=== PATIENT | female | born 1950 | race Caucasian/White ===

== ENCOUNTER 2016-10-14 08:22 | Day surgery (SDC) | payer MEDICARE, BC ==
[2016-10-14] MEDS ORDERED: Midazolam 1 MG/ML 2 ML SDV ONE (09:01)
[2016-10-14] MEDS ORDERED: Propofol 200 MG/20 ML SDV ONE ×2 (09:01→09:47)
[2016-10-14] MEDS ORDERED: fentaNYL 100 MCG/2 ML SDV ONE (09:01)
[2016-10-14] MEDS ORDERED: Lactated Ringers 1,000 ML IV SCH (09:15)
[2016-10-14 11:04] VITALS: BP 138/69
--- NOTE | 2016-10-15 11:13 | OR ---
DATE OF PROCEDURE: 10/14/2016 PREOPERATIVE DIAGNOSIS: Colon cancer screening. POSTOPERATIVE DIAGNOSIS: Unremarkable colonoscopy. PROCEDURE PERFORMED: Colonoscopy to the cecum. ANESTHESIA: IV anesthesia with monitored anesthesia care. INDICATIONS: This 65-year-old white female is referred for a colonoscopy for colon cancer screening. She says her last colonoscopic exam was done in [place] ten years ago. I counseled her for the procedure including risks and alternatives, and she gave her informed consent to proceed. DESCRIPTION OF PROCEDURE: The patient was placed in the left lateral decubitus position. IV anesthesia was administered by the Anesthesia Service. Time-out was held. A rectal exam was performed, which was unremarkable. The flexible video Olympus colonoscope was introduced through her anus, up her rectum, and out her colon all way to the cecum. To accomplish this, we did apply some abdominal compression. Once the cecum was reached, the scope was slowly withdrawn examining the mucosa throughout. No mucosal abnormalities were noted. No neoplastic lesions were seen. No diverticula were seen. The scope was retroflexed in the rectum with the distal rectum appearing unremarkable. The scope was straightened and removed. She tolerated the procedure well. Gregor Alicea MD /[id number] BINA
== END 2016-10-14 11:20 | disposition home or self-care (01) ==
LOC: JP.SDS 08:22
PROVIDERS: ATTEND Surgery
DX: Z12.11 Encounter for screening for malignant neoplasm of colon (principal)
CPT/HCPCS: G0121; J2250; J2704; J3010; J7120

== ENCOUNTER 2017-08-09 19:52 | Emergency (ER) | payer MEDICARE, BC ==
[2017-08-09 20:27] VITALS: BP 157/76
--- NOTE | 2017-08-09 20:31 | EDM.PDOC ---
ED HPI GENERAL MEDICAL PROBLEM - General Chief Complaint: Abdominal Pain Stated Complaint: STOMACH PAIN Time Seen by Provider: 08/09/17 20:29 Source of Information: Reports: Patient, Family History Limitations: Reports: No Limitations - History of Present Illness INITIAL COMMENTS - FREE TEXT/NARRATIVE: pt arrived with a distended abdoman. She is uncomfortble in the lowr abdoman.She has not had a bm since wednesday. Onset: Gradual, Other ( the discomfort is worse today. ) Duration: Hour(s):, Other (pt did drink a half bottle of mag citrate today. ) Location: Reports: Abdomen Associated Symptoms: Reports: Loss of Appetite Lower Abdominal Pain Score (Numeric/FACES): 8 - Related Data Allergies Allergy/AdvReac Type Severity Reaction Status Date / Time No Known Allergies Allergy Verified 10/14/16 08:55 Home Meds: Home Meds Magnesium Citrate [Citrate of Magnesia] 296 ml PO ASDIRECTED PRN 08/09/17 [ History] Ondansetron [Zofran ODT] 4 mg PO ASDIRECTED PRN 08/09/17 [History] Prochlorperazine Maleate 08/09/17 [History] Prochlorperazine [Compazine] 5 mg PO ASDIRECTED PRN 08/09/17 [History] Sennosides/Docusate Sodium [Senna-S] 2 tab PO BID 08/09/17 [History] oxyCODONE 5 mg PO ASDIRECTED PRN 08/09/17 [History] Past Medical History - Past Health History Medical/Surgical History: Denies Medical/Surgical History HEENT History: Reports: 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: Oncologic (Cancer) History: Reports: Basal Cell Carcinoma, Liver, Pancreatic - Infectious Disease History Infectious Disease History: Reports: Chicken Pox - Past Surgical History HEENT Surgical History: Reports: Tonsillectomy GI Surgical History: Reports: Appendectomy Social & Family History - Tobacco Use Smoking Status *Q: Never Smoker Second Hand Smoke Exposure: No - Caffeine Use Caffeine Use: Reports: Coffee - Alcohol Use Days Per Week of Alcohol Use: 3 Number of Drinks Per Day: 1 Total Drinks Per Week: 3 - Recreational Drug Use Recreational Drug Use: No ED ROS GENERAL - Review of Systems Review Of Systems: See Below Constitutional: Reports: No Symptoms HEENT: Reports: No Symptoms Respiratory: Reports: No Symptoms Cardiovascular: Reports: No Symptoms Endocrine: Reports: No Symptoms GI/Abdominal: Reports: Abdominal Pain, Constipation, Distension, Nausea : Reports: No Symptoms Musculoskeletal: Reports: No Symptoms Skin: Reports: No Symptoms Neurological: Reports: No Symptoms ED EXAM, GI/ABD - Physical Exam Exam: See Below Text/Narrative:: pt arrived with a history of no bm mariza wednesday. She feels distended in the lower abdoman. She is not passing gas. Exam Limited By: No Limitations General Appearance: Alert, Anxious, Moderate Distress Ears: Normal TMs Nose: Normal Inspection Throat/Mouth: Normal Inspection Head: Atraumatic Neck: Normal Inspection Respiratory/Chest: No Respiratory Distress Cardiovascular: Regular Rate, Rhythm, Tachycardia GI/Abdominal Exam: Distended, Tender (Female) Exam: Deferred Rectal (Female) Exam: Deferred Back Exam: Normal Inspection Extremities: Normal Inspection Neurological: Alert, Oriented, Normal Cognition Psychiatric: Normal Affect Course - Vital Signs Last Recorded V/S: Last Vital Signs Temp 35.7 C 08/09/17 20:09 Pulse 85 08/09/17 20:09 Resp 16 08/09/17 20:09 BP 157/76 H 08/09/17 20:09 Pulse Ox 97 08/09/17 20:09 - Orders/Labs/Meds Labs: Laboratory Tests 08/09/17 08/09/17 08/09/17 Range/Units 20:40 20:40 21:08 WBC 14.6 H (4.5-11.0) K/uL RBC 4.19 (3.30-5.50) M/uL Hgb 12.8 (12.0-15.0) g/dL Hct 38.0 (36.0-48.0) % MCV 91 (80-98) fL MCH 31 (27-31) pg MCHC 34 (32-36) % Plt Count 269 (150-400) K/uL Neut % (Auto) 88 H (36-66) % Lymph % (Auto) 7 L (24-44) % [place] % (Auto) 4 (2-6) % Eos % (Auto) 0 L (2-4) % Baso % (Auto) 0 (0-1) % Sodium 131 L (140-148) mmol/L Potassium 4.1 (3.6-5.2) mmol/L Chloride 93 L (100-108) mmol/L Carbon Dioxide 28 (21-32) mmol/L Anion Gap 14.1 H (5.0-14.0) mmol/L BUN 13 (7-18) mg/dL Creatinine 0.6 (0.6-1.0) mg/dL Est Cr Clr Drug Dosing 86.75 mL/min Estimated GFR (MDRD) > 60 (>60) Glucose 160 H (74-106) mg/dL Calcium 9.1 (8.5-10.1) mg/dL Total Bilirubin 1.2 H (0.2-1.0) mg/dL AST 50 H (15-37) U/L ALT 90 H (12-78) U/L Alkaline Phosphatase 246 H (46-116) U/L Total Protein 6.7 (6.4-8.2) g/dL Albumin 3.3 L (3.4-5.0) g/dL Globulin 3.4 (2.3-3.5) g/dL Albumin/Globulin Ratio 1.0 L (1.2-2.2) Urine Color Yellow Urine Appearance Clear Urine pH 5.0 (4.5-8.0) Ur Specific [place] 1.025 (1.008-1.030) Urine Protein Negative (NEGATIVE) mg/dL Urine Glucose (UA) Normal (NEGATIVE) mg/dL Urine Ketones 50 H (NEGATIVE) mg/dL Urine Occult Blood Moderate (NEGATIVE) Urine Nitrite Negative (NEGATIVE) Urine Bilirubin Negative (NEGATIVE) Urine Urobilinogen 4 (NORMAL) mg/dL Ur Leukocyte Esterase Negative (NEGATIVE) Urine RBC 5-10 H (0-5) Urine WBC 0-5 (0-5) Ur Epithelial Cells Few Amorphous Sediment Not seen Urine Bacteria Few Urine Mucus Rare Meds: Medications Discontinued Medications Generic Name Dose Route Start Last Admin Trade Name Freq PRN Reason Stop Dose Admin Hydromorphone HCl 0.5 mg 08/09/17 23:52 08/10/17 00:04 Dilaudid IVPUSH 08/09/17 23:53 0.5 mg ONETIME ONE Administration Sodium Chloride 70 mls @ 3 mls/sec 08/09/17 21:55 08/09/17 22:07 Normal Saline IV 08/09/17 21:56 3 mls/sec ASDIRECTED STA Administration Sodium Chloride 1,000 mls @ 400 mls/hr 08/09/17 23:45 08/09/17 23:58 Normal Saline IV 400 mls/hr ASDIRECTED THUY Administration Iopamidol 90 ml 08/09/17 21:55 08/09/17 22:07 Isovue-300 (61%) IV 08/09/17 21:56 100 ml . DIRECTED STA Administration Ondansetron HCl 4 mg 08/09/17 23:52 08/10/17 00:01 Zofran IVPUSH 08/09/17 23:53 4 mg ONETIME ONE Administration - Re-Assessments/Exams Free Text/Narrative Re-Assessment/Exam: 08/10/17 00:01 pt had a cat scan which shows a colonic obstruction, She has known Ca of the pancreas. Pt has chosen to go back to [facility]. She had a liver biopsy done by the interventional radiologist and she had her first round of chemo at [facility]. Departure - Departure Time of Disposition: 00:03 Disposition: DC/Tfer to Acute Hospital 02 Condition: Fair Clinical Impression: Colonic obstruction, Cancer of pancreas, History of recent chemotherapy - Discharge Information Referrals: Gem Kim NP [Primary Care Provider] - Forms: ED Department Discharge Care Plan Goals: transfer to [facility].
[2017-08-09] MEDS ORDERED: Iopamidol 612 MG/ML 100 ML Bottle IV STA (21:55)
[2017-08-09] MEDS ORDERED: Sodium Chloride 0.9% 1,000 ML IV SCH (23:45)
[2017-08-09] MEDS ORDERED: Ondansetron 4 MG/2 ML SDV IVPUSH ONE (23:52)
[2017-08-09] MEDS ORDERED: HYDROmorphone 0.5 MG/0.5 ML Syringe IVPUSH ONE (23:52)
--- NOTE | 2017-08-10 09:30 | CR ---
Heart size within normal limits. Pulmonary vasculature within normal limits. No focal consolidation. Dilated central loop of bowel which may be colonic indicating colonic obstruction.
== END 2017-08-10 00:44 ==
LOC: JP.ED 19:52
DX: K56.609 Unspecified intestinal obstruction, unspecified as to partial versus complete obstruction (principal); C25.9 Malignant neoplasm of pancreas, unspecified
CPT/HCPCS: 36415; 43752; 51798; 74022; 74177; 80053; 81001; 85025; 96361; 96374; 96375; 99285; J1170; J2405; J7030; J7040; Q9967; 99284

== ENCOUNTER 2018-03-02 19:33 | Emergency (ER) | payer MEDICARE, BC ==
[2018-03-02 20:15] VITALS: BP 123/57
--- NOTE | 2018-03-02 21:06 | EDM.PDOC ---
ED HPI GENERAL MEDICAL PROBLEM - General Chief Complaint: Fever Stated Complaint: FEVER/CANCER PATIENT Time Seen by Provider: 03/02/18 20:05 Source of Information: Reports: Patient, Family History Limitations: Reports: No Limitations - History of Present Illness INITIAL COMMENTS - FREE TEXT/NARRATIVE: 67-year-old female with metastatic pancreatic cancer received a new dual course of chemotherapy 2 days ago. Today she developed a low-grade fever at home, called the oncologist and he had her come in to get checked out. She had some mild chills but those are resolved, her fever is now essentially resolved as well with a temperature of 99.3. She has no cold symptoms, shortness of breath, cough, abdominal symptoms, rashes, or other specific symptoms. She has some generalized aching and malaise typical of her chemotherapy that she has had in the past. Onset: Unknown/Unsure Severity: Mild Context: Reports: Other (Recent dual chemotherapy) Associated Symptoms: Reports: Malaise. 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) Other Treatments PROOF LOAD MECHANIC: none Back Pain Score (Numeric/FACES): 4 - Related Data Allergies Allergy/AdvReac Type Severity Reaction Status Date / Time No Known Allergies Allergy Verified 03/02/18 20:15 Home Meds: Home Meds Ondansetron [Zofran ODT] 4 mg PO ASDIRECTED PRN 08/09/17 [History] Prochlorperazine [Compazine] 5 mg PO ASDIRECTED PRN 08/09/17 [History] Sennosides/Docusate Sodium [Senna-S] 2 tab PO BID 08/09/17 [History] oxyCODONE 5 mg PO ASDIRECTED PRN 08/09/17 [History] Past Medical History - Past Health History Medical/Surgical History: Denies Medical/Surgical History HEENT History: Reports: 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: Oncologic (Cancer) History: Reports: Basal Cell Carcinoma, Liver, Pancreatic - Infectious Disease History Infectious Disease History: Reports: Chicken Pox - Past Surgical History HEENT Surgical History: Reports: Tonsillectomy GI Surgical History: Reports: Appendectomy, Other (See Below) Other GI Surgeries/Procedures: Colostomy middle of abdomen Social & Family History - Tobacco Use Smoking Status *Q: Never Smoker Second Hand Smoke Exposure: No - Caffeine Use Caffeine Use: Reports: Coffee - Recreational Drug Use Recreational Drug Use: No ED ROS GENERAL - Review of Systems Review Of Systems: See Below Constitutional: Reports: Fever, Chills, Malaise. Denies: Weakness HEENT: Denies: Ear Pain, Throat Pain Respiratory: Denies: Shortness of Breath, Cough Cardiovascular: Denies: Chest Pain GI/Abdominal: Reports: Other (Has a colostomy which is functioning normally). Denies: Abdominal Pain, Nausea, Vomiting : Reports: No Symptoms Musculoskeletal: Reports: Muscle Pain (Generalized muscle aches from chemotherapy) Skin: Reports: No Symptoms Neurological: Denies: Headache Psychiatric: Reports: No Symptoms ED EXAM, GENERAL - Physical Exam Exam: See Below Exam Limited By: No Limitations General Appearance: Alert, No Apparent Distress Eye Exam: Bilateral Eye: Normal Inspection Head: Atraumatic Neck: No: Lymphadenopathy (R), Lymphadenopathy (L) Respiratory/Chest: No Respiratory Distress, Lungs Clear Cardiovascular: Regular Rate, Rhythm GI/Abdominal: Soft, Other (Colostomy in place) Neurological: Alert, Oriented Psychiatric: Normal Affect, Normal Mood Skin Exam: Warm, Dry Course - Vital Signs Last Recorded V/S: Last Vital Signs Temp 99.3 F 03/02/18 20:23 Pulse 113 H 03/02/18 20:23 Resp 14 03/02/18 20:23 BP 123/57 L 03/02/18 20:10 Pulse Ox 99 03/02/18 20:23 - Orders/Labs/Meds Labs: Laboratory Tests 03/02/18 Range/Units 20:45 WBC 11.4 H (4.5-11.0) K/uL RBC 3.16 L (3.30-5.50) M/uL Hgb 10.3 L D (12.0-15.0) g/dL Hct 31.6 L (36.0-48.0) % MCV 100 H (80-98) fL MCH 33 H (27-31) pg MCHC 33 (32-36) % Plt Count 80 L (150-400) K/uL Neut % (Auto) 95 H (36-66) % Lymph % (Auto) 4 L (24-44) % [place] % (Auto) 1 L (2-6) % Eos % (Auto) 0 L (2-4) % Baso % (Auto) 0 (0-1) % - Re-Assessments/Exams Free Text/Narrative Re-Assessment/Exam: 03/02/18 21:05 Discussed her case with her oncologist and he wants a baseline CBC which was ordered. 03/02/18 21:35 CBC was reassuring with an 11.4 white count with 85% neutrophils. Patient remained afebrile. She'll return if worsening or concerns. Departure - Departure Time of Disposition: 21:49 Disposition: Home, Self-Care 01 Condition: Good Clinical Impression: Fever Qualifiers: Fever type: due to other condition Qualified Code(s): R50.81 - Fever presenting with conditions classified elsewhere - Discharge Information Instructions: Fever, Adult Referrals: PCP,None [Primary Care Provider] - Forms: ED Department Discharge Care Plan Goals: Return to the emergency room at any time if you feel you are worsening such as persistent fever or symptoms of infection such as cough, shortness of breath or red skin. Continue your current medications.
== END 2018-03-02 21:45 | disposition home or self-care (01) ==
LOC: JP.ED 19:33
DX: R50.81 Fever presenting with conditions classified elsewhere (principal); C25.9 Malignant neoplasm of pancreas, unspecified; G72.0 Drug-induced myopathy; Z85.828 Personal history of other malignant neoplasm of skin
CPT/HCPCS: 36415; 85025; 99284